=== PATIENT | male | born 1960 | race African-American/Black ===

== ENCOUNTER 2018-09-05 19:23 | Emergency (ER) | payer OTHER ==
[2018-09-05 20:48] LABS: Absolute Lymphocytes (CBC) 2.5 K/uL (0.7-4.9); Absolute Monocytes 0.6 K/uL (0.1-1.3); Absolute Neutrophil 3.6 K/uL (1.8-8.0); Basophils % 1.2 % (0-1.3); Eosinophils % 1.4 % (0-4.4); Hematocrit 44.7 % (39.6-49.0); Lymphocytes % 36.9 % (15.3-44.8); MPV 8.3 fL (7.6-11.3); Monocytes % 8.5 % (3.3-12.3); RBC Red Blood Cell Count 5.19 M/uL (4.33-5.43)
[2018-09-05 20:51] LABS: Protime INR 0.91
[2018-09-05 21:09] LABS: ALT/SGPT 24 U/L (12-78); AST/SGOT 11 U/L (15-37); Albumin 3.7 g/dL (3.4-5.0); Alkaline Phosphatase 64 U/L (45-117); BUN Blood Urea Nitrogen 19 mg/dL (7-18); Bicarbonate 26 mmol/L (21-32); Bilirubin Direct < 0.1 mg/dL (0-0.2); Bilirubin Total 0.2 mg/dL (0.2-1.0); Glucose Level 97 mg/dL (74-106); NT PRO-BNP 19 pg/mL (<125); Potassium 3.7 mmol/L (3.5-5.1); Protein, Total 7.3 g/dL (6.4-8.2); Sodium Level 140 mmol/L (136-145); Troponin (Emerg Dept Use Only) < 0.02 ng/mL (0.0-0.045)
--- NOTE | 2018-09-05 21:09 | RAD REPORT ---
EXAM DESCRIPTION: Thien Single View09/05/2018 8:45 pm CLINICAL HISTORY: Chest pain COMPARISON: 2009 FINDINGS: The lungs appear clear of acute infiltrate. The heart is probably upper limits normal siz e IMPRESSION: No acute abnormalities displayed
--- NOTE | 2018-09-05 23:15 | EDPHYS ---
Physician Documentation [facility] Name: Hi Tripathi Age: 58 yrs Sex: Male : 1960 Arrival Date: 09/05/2018 Time: 19:28 Bed 26 Private MD: Nae Carrasquillo H ED Physician Kevin Payne HPI: 09/05 23:00 This 58 yrs old Black Male presents to ER via Ambulatory with complaints of Chest Pain pm1 - left side. 23:00 Onset: The symptoms/episode began/occurred this morning, at 11:00. pm1 23:00 The patient or guardian reports chest pain that is located primarily in the anterior pm1 aspect of left upper chest. The pain does not radiate. Associated signs and symptoms: Pertinent negatives: abdominal pain, cough, dizziness, headache, nausea, shortness of breath, vomiting. The chest pain is described as sharp. Duration: The patient or guardian reports multiple episodes, approximately 2 episodes since symptom onset, the episodes last approximately 5 second(s), Patient with two episodes of chest pain. 5 seconds apiece. One at 1100 and another at 1830. Modifying factors: The symptoms are alleviated by nothing. the symptoms are aggravated by nothing. Severity of pain: in the emergency department the pain has resolved is a 0 / 10. The patient has not experienced similar symptoms in the past. The patient has not recently seen a physician, the patient's primary care provider is Dr. Carrasquillo. Historical: - Allergies: 20:24 No Known Allergies; tl3 - Home Meds: 20:24 albuterol sulfate 90 mcg/actuation Inhl HFAA [Active]; Lisinopril Oral once daily tl3 [Active]; - PMHx: 20:24 Hypertension; tl3 - Immunization history:: Adult Immunizations up to date. - Social history:: Smoking status: unknown. - Ebola Screening: : No symptoms or risks identified at this time. ROS: 23:00 Constitutional: Negative for fever, chills, and weight loss, Eyes: Negative for injury, pm1 pain, redness, and discharge, ENT: Negative for injury, pain, and discharge, Neck: Negative for injury, pain, and swelling. 23:00 Respiratory: Negative for shortness of breath, cough, wheezing, and pleuritic chest pain, Abdomen/GI: Negative for abdominal pain, nausea, vomiting, diarrhea, and constipation, Back: Negative for injury and pain, : Negative for injury, bleeding, discharge, and swelling, MS/Extremity: Negative for injury and deformity, Skin: Negative for injury, rash, and discoloration, Neuro: Negative for headache, weakness, numbness, tingling, and seizure. 23:00 Cardiovascular: Positive for chest pain, Negative for edema, orthopnea, palpitations. Exam: 23:00 Constitutional: This is a well developed, well nourished patient who is awake, alert, pm1 and in no acute distress. Head/Face: Normocephalic, atraumatic. Eyes: Pupils equal round and reactive to light, extra-ocular motions intact. Lids and lashes normal. Conjunctiva and sclera are non-icteric and not injected. Cornea within normal limits. Periorbital areas with no swelling, redness, or edema. ENT: Nares patent. No nasal discharge, no septal abnormalities noted. Tympanic membranes are normal and external auditory canals are clear. Oropharynx with no redness, swelling, or masses, exudates, or evidence of obstruction, uvula midline. Mucous membranes moist. Neck: Trachea midline, no thyromegaly or masses palpated, and no cervical lymphadenopathy. Supple, full range of motion without nuchal rigidity, or vertebral point tenderness. No Meningismus. Chest/axilla: Normal chest wall appearance and motion. Nontender with no deformity. No lesions are appreciated. Cardiovascular: Regular rate and rhythm with a normal S1 and S2. No gallops, murmurs, or rubs. Normal PMI, no JVD. No pulse deficits. Respiratory: Lungs have equal breath sounds bilaterally, clear to auscultation and percussion. No rales, rhonchi or wheezes noted. No increased work of breathing, no retractions or nasal flaring. Abdomen/GI: Soft, non-tender, with normal bowel sounds. No distension or tympany. No guarding or rebound. No evidence of tenderness throughout. Back: No spinal tenderness. No costovertebral tenderness. Full range of motion. Skin: Warm, dry with normal turgor. Normal color with no rashes, no lesions, and no evidence of cellulitis. MS/ Extremity: Pulses equal, no cyanosis. Neurovascular intact. Full, normal range of motion. 23:00 Neuro: Orientation: is normal, Motor: is normal, moves all fours. Vital Signs: 20:24 BP 154 / 92; Pulse 65; Resp 18; Pulse Ox 100% on R/A; Weight 99.79 kg; Height 5 ft. 6 tl3 in. (167.64 cm); 21:01 BP 138 / 115; Pulse 69; Resp 18; Pulse Ox 99% on R/A; tl3 22:07 BP 120 / 82; Pulse 60; Resp 18; Pulse Ox 100% on R/A; Pain 0/10; mg2 22:41 BP 115 / 70; Pulse 70; Resp 18; Pulse Ox 100% on R/A; tl3 23:30 BP 120 / 78; Pulse 80; Resp 18; Pulse Ox 100% on R/A; Pain 0/10; mg2 20:24 Body Mass Index 35.51 (99.79 kg, 167.64 cm) tl3 MDM: 20:05 Patient medically screened. pm1 23:11 Data reviewed: vital signs. Data interpreted: Pulse oximetry: on room air is 100 %. pm1 Interpretation: normal. Counseling: I had a detailed discussion with the patient and/or guardian regarding: the historical points, exam findings, and any diagnostic results supporting the discharge/admit diagnosis, lab results, radiology results, the need for outpatient follow up, to return to the emergency department if symptoms worsen or persist or if there are any questions or concerns that arise at home. 23:11 NIDIA Risk Score: TOTAL SCORE = 0. pm1 09/05 20:06 Order name: Basic Metabolic Panel; Complete Time: 21:11 pm09/05 20:06 Order name: CBC with Diff; Complete Time: 21:11 pm09/05 20:06 Order name: LFT's; Complete Time: 21:11 pm1 09/05 20:06 Order name: Magnesium; Complete Time: 21:11 pm1 09/05 20:06 Order name: NT PRO-BNP; Complete Time: 21:11 pm1 09/05 20:06 Order name: PT-INR; Complete Time: 21:11 pm1 09/05 20:06 Order name: Troponin (emerg Dept Use Only); Complete Time: 21:11 pm1 09/05 20:06 Order name: XRAY Chest (1 view); Complete Time: 21:11 pm1 09/05 20:06 Order name: EKG; Complete Time: 20:07 pm1 09/05 20:06 Order name: Cardiac monitoring; Complete Time: 20:19 pm1 09/05 20:06 Order name: EKG - Nurse/Tech; Complete Time: 20:20 pm1 09/05 20:06 Order name: IV Saline Lock; Complete Time: 20:20 pm1 09/05 20:06 Order name: Labs collected and sent; Complete Time: 20:20 pm1 09/05 22:09 Order name: Troponin (emerg Dept Use Only); Complete Time: 23:11 mg2 09/05 20:06 Order name: O2 Per Protocol; Complete Time: 20:20 pm1 09/05 20:06 Order name: O2 Sat Monitoring; Complete Time: 20:21 pm1 Administered Medications: No medications were administered Disposition: 09/06 07:58 Co-signature as Attending Physician, Kevin Payne MD I agree with the assessment and gracia plan of care. Disposition: 09/05/18 23:14 Discharged to Home. Impression: Chest pain, unspecified. - Condition is Stable. - Discharge Instructions: Nonspecific Chest Pain. - Medication Reconciliation Form, Thank You Letter, Antibiotic Education, Prescription Opioid Use form. - Follow up: Emergency Department; When: As needed; Reason: Worsening of condition. Follow up: Private Physician; When: 2 - 3 days; Reason: Recheck today's complaints, Continuance of care, Re-evaluation by your physician. - Problem is new. - Symptoms have improved. Signatures: Dispatcher [employer] EDSC Kevin Payne MD MD cha Marinas, Patrick, BOBBIN MARKER BOBBIN MARKER pm1 Bernice Gordillo, BIBI RN tl3 Jeison Ayala, BIBI RN mg2 Corrections: (The following items were deleted from the chart) 09/05 23:30 23:14 09/05/2018 23:14 Discharged to Home. Impression: Chest pain, unspecified. mg2 Condition is Stable. Forms are Medication Reconciliation Form, Thank You Letter, Antibiotic Education, Prescription Opioid Use. Follow up: Emergency Department; When: As needed; Reason: Worsening of condition. Follow up: Private Physician; When: 2 - 3 days; Reason: Recheck today's complaints, Continuance of care, Re-evaluation by your physician. Problem is new. Symptoms have improved. pm1
--- NOTE | 2018-09-05 23:15 | ER ---
Nurse's Notes [facility] Name: Hi Tripathi Age: 58 yrs Sex: Male : 1960 Arrival Date: 09/05/2018 Time: 19:28 Bed 26 Private MD: Nae Carrasquillo H Diagnosis: Chest pain, unspecified Presentation: 09/05 20:21 Presenting complaint: Patient states: two episodes of chest pain to the left side of tl3 chest lasting about 10 seconds each time, one episode of SOB while walking to his truck right after second episode of chest pain. Transition of care: patient was not received from another setting of care. Onset of symptoms was September 05, 2018. Risk Assessment: Do you want to hurt yourself or someone else? Patient reports no desire to harm self or others. Initial Sepsis Screen: Does the patient meet any 2 criteria? No. Patient's initial sepsis screen is negative. Does the patient have a suspected source of infection? No. Patient's initial sepsis screen is negative. Care prior to arrival: None. 20:21 Method Of Arrival: Ambulatory tl3 20:21 Acuity: DOROTHY 3 tl3 Triage Assessment: 20:24 General: Appears in no apparent distress. comfortable, slender, well groomed, well tl3 developed, well nourished, Behavior is calm, cooperative, appropriate for age. Pain: Complains of pain in chest Pain at worst was 10 out of 10 on a pain scale. EENT: No signs and/or symptoms were reported regarding the EENT system. Neuro: Level of Consciousness is awake, alert, obeys commands, Oriented to person, place, time, situation, Appropriate for age. Cardiovascular: Patient's skin is warm and dry. Rhythm is sinus rhythm. Respiratory: Airway is patent Respiratory effort is even, unlabored, Respiratory pattern is regular, symmetrical. GI: No signs and/or symptoms were reported involving the gastrointestinal system. : No signs and/or symptoms were reported regarding the genitourinary system. Derm: No signs and/or symptoms reported regarding the dermatologic system. Musculoskeletal: No signs and/or symptoms reported regarding the musculoskeletal system. Historical: - Allergies: 20:24 No Known Allergies; tl3 - Home Meds: 20:24 albuterol sulfate 90 mcg/actuation Inhl HFAA [Active]; Lisinopril Oral once daily tl3 [Active]; - PMHx: 20:24 Hypertension; tl3 - Immunization history:: Adult Immunizations up to date. - Social history:: Smoking status: unknown. - Ebola Screening: : No symptoms or risks identified at this time. Screenin:31 Abuse screen: Denies threats or abuse. Nutritional screening: No deficits noted. tl3 Tuberculosis screening: No symptoms or risk factors identified. Fall Risk None identified. Assessment: 20:31 Reassessment: No changes from previously documented assessment. Pain: Complains of pain tl3 in chest Pain does not radiate. Pain began. 21:01 Reassessment: No changes from previously documented assessment. Patient and/or family tl3 updated on plan of care and expected duration. Pain level reassessed. Patient is alert, oriented x 3, equal unlabored respirations, skin warm/dry/pink. family at the bedside. 22:41 Reassessment: Patient appears in no apparent distress at this time. No changes from tl3 previously documented assessment. Patient and/or family updated on plan of care and expected duration. Pain level reassessed. Patient is alert, oriented x 3, equal unlabored respirations, skin warm/dry/pink. awaiting lab results of repeat troponin. Vital Signs: 20:24 BP 154 / 92; Pulse 65; Resp 18; Pulse Ox 100% on R/A; Weight 99.79 kg; Height 5 ft. 6 tl3 in. (167.64 cm); 21:01 BP 138 / 115; Pulse 69; Resp 18; Pulse Ox 99% on R/A; tl3 22:07 BP 120 / 82; Pulse 60; Resp 18; Pulse Ox 100% on R/A; Pain 0/10; mg2 22:41 BP 115 / 70; Pulse 70; Resp 18; Pulse Ox 100% on R/A; tl3 23:30 BP 120 / 78; Pulse 80; Resp 18; Pulse Ox 100% on R/A; Pain 0/10; mg2 20:24 Body Mass Index 35.51 (99.79 kg, 167.64 cm) tl3 ED Course: 19:28 Patient arrived in ED. am2 19:28 Pasquale Gray MD is Private Physician. am2 19:29 Nae Carrasquillo DO is Private Physician. am2 19:42 Gardose, Jeison, RN is Primary Nurse. mg2 20:05 Thom Milligan NP is PHCP. pm1 20:05 Kevin Payne MD is Attending Physician. pm1 20:22 Triage completed. tl3 20:31 Patient has correct armband on for positive identification. front desk monitor on. Pulse tl3 ox on. NIBP on. Warm blanket given. 20:31 No provider procedures requiring assistance completed. Initial lab(s) drawn, by ne, tl3 sent to lab. Inserted saline lock: 20 gauge in right forearm, using aseptic technique. Blood collected. Patient maintains SpO2 saturation greater than 95% on room air. 20:47 XRAY Chest (1 view) In Process Unspecified. EDMS 22:13 Arm band placed on. mg2 23:27 IV discontinued, intact, bleeding controlled, No redness/swelling at site. Pressure mg2 dressing applied. Administered Medications: No medications were administered Outcome: 23:14 Discharge ordered by . pm1 23:29 Discharged to home ambulatory, with family. mg2 23:29 Condition: stable 23:29 Discharge instructions given to patient, family, Instructed on discharge instructions, follow up and referral plans. Demonstrated understanding of instructions, follow-up care. 23:30 Patient left the ED. mg2 Signatures: Dispatcher [employer] EDMS Thom Milligan, ROSEANN CIGAR ROLLER pm1 Beatriz San am2 Bernice Gordillo, BIBI RN tl3 Jeison Ayala, RN RN mg2
--- NOTE | 2018-09-06 08:09 | EKG ---
Test Date: 2018-09-05 Test Time: 20:14:06 Facilities Maintenance Engineer: TL MEASUREMENT RESULTS: Intervals: Rate: 65 VT: 180 QRSD: 94 QT: 390 QTc: 405 Alvarado: P: 40 VT: 180 QRS: -28 T: -3 INTERPRETIVE STATEMENTS: Normal sinus rhythm Normal ECG Compared to ECG 11/21/2014 13:23:44 No significant changes Electronically Signed On 09-06-18 08:08:27 MASTER FIRE CONTROL TECHNICIAN by Agustin Tillman
== END 2018-09-05 23:30 | disposition home or self-care (01) ==
LOC: ER 19:23
DX: R07.9 Chest pain, unspecified (principal); I10 Essential (primary) hypertension
CPT/HCPCS: 36415; 71045; 80048; 80076; 83735; 83880; 84484; 85025; 85610; 93005; 99285

== ENCOUNTER → 2023-09-15 | Emergency (ER) | payer OTHER ==
[~2023-09-15] MED LIST: NA CHLORIDE 0.9% 1,000 ML ONE; ONDANSETRON 4 MG/2 ML VIAL ONE
--- OUTSIDE RECORDS SUMMARY | 2023-09-15 20:31 | XMS REPORT | Continuity of Care Document ---
Author Name Unknown Address [address] [place] [address] Alec. [address] [place] [address] [facility] thconnect Address [address] [facility]. [address] [place] [address] Care Team Providers Care Transformation Analyst Name Role Phone PARVEZ BELCHER Attending Clinician RODERICK Matute Attending Clinician Unavailable Doctor Unassigned, [place] Attending Clinician U nicholas Belcher MD, Parvez Hu Attending Clinician Roderick Puente MD Attending Clinician Payers Payer Name Policy Type Policy Number Effective Date Expirati on Date Source L [employer] CLAIMS [id number] 2020 00:00:00 Problems Condition Name Condition Details Condition Category Status Onset Date Resolution Date Last Treatment Date Treating Clinician Comments Source No known active problems No known active problems Disease [facility] Allergies, Adverse Reactions, Alerts Allergy Name Allergy Type Status Severity Reaction(s) Onset Date Inactive Date Treating Clinician Comments Source NO KNOWN ALLERGIE S Drug Class Active [facility] Social History Social Habit Start Date Stop Date Quantity Comments Source Exposure to SARS-CoV-2 (event) Not sure [facility] Tobacco use and exposure 2021-01-05 00:00:00 2021-01-05 00:00:00 Never used [facility] Sex Assigned At 1960 00:00:00 1960 00:00:00 [facility] Smoking Status Start Date Stop Date Source Never smoker [facility] Unknown if ever smoked [facility] Medications Ordered Medication Name Filled Medication Name Start Date Stop Date Current Medication? Ordering Clinician Indication Dosage Frequency Signature (SIG) Comments Components Source atorvastati n 20 mg tablet 2020-0 10-20 00:00: 00 Yes 20mg Take 20 mg by mouth daily. [facility] lisinopriL 20 mg tablet 0 10-20 00:00: 00 Yes 20mg Take 20 mg by mouth daily. [facility] tamsulosin 0.4 mg 24 hr capsule 0 10-20 00:00: 00 Yes .4mg Take 0.4 mg by mouth daily. [facility] atorvastati n 20 mg tablet 2020-0 10-20 00:00: 00 Yes 20mg Take 20 mg by mouth daily. [facility] lisinopriL 20 mg tablet 0 10-20 00:00: 00 Yes 20mg Take 20 mg by mouth daily. [facility] tamsulosin 0.4 mg 24 hr capsule 10-20 00:00: 00 Yes .4mg Take 0.4 mg by mouth daily. [facility] atorvastati n 20 mg tablet 0 10-20 00:00: 00 Yes 20mg Take 20 mg by mouth daily. [facility] lisinopriL 20 mg tablet 0 10-20 00:00: 00 Yes 20mg Take 20 mg by mouth daily. [facility] tamsulosin 0.4 mg 24 hr capsule 0 10-20 00:00: 00 Yes .4mg Take 0.4 mg by mouth daily. [facility] atorvastati n 20 mg tablet 0 10-20 00:00: 00 Yes 20mg Take 20 mg by mouth daily. [facility] lisinopriL 20 mg tablet 2020-0 10-20 00:00: 00 Yes 20mg Take 20 mg by mouth daily. [facility] tamsulosin 0.4 mg 24 hr capsule 0 10-20 00:00: 00 Yes .4mg Take 0.4 mg by mouth daily. [facility] atorvastati n 20 mg tablet 2020-0 10-20 00:00: 00 Yes 20mg Take 20 mg by mouth daily. [facility] lisinopriL 20 mg tablet 10-20 00:00: 00 Yes 20mg Take 20 mg by mouth daily. [facility] tamsulosin 0.4 mg 24 hr capsule 10-20 00:00: 00 Yes .4mg Take 0.4 mg by mouth daily. [facility] atorvastati n 20 mg tablet 10-20 00:00: 00 Yes 20mg Take 20 mg by mouth daily. [facility] lisinopriL 20 mg tablet 10-20 00:00: 00 Yes 20mg Take 20 mg by mouth daily. [facility] tamsulosin 0.4 mg 24 hr capsule 10-20 00:00: 00 Yes .4mg Take 0.4 mg by mouth daily. [facility] Vital Signs Vital Name Observation Time Observation Value Comments S ourrosales Systolic blood pressure 2021-01-05 15:54:00 125 mm[Hg] [facility] Diastolic blood pressure 2021-01-05 15:54:00 81 mm[Hg] [facility] Heart rate 2021-01-05 15:54:00 81 /min [facility] Body height 2021-01-05 15:54:[address] [facility] Body weight 2021-01-05 15:54:[address] [facility] BMI 2021-01-05 15:54:00 37.40 kg/m2 [facility] Oxygen saturation in Arterial blood by Pulse oximetry 2021-01-05 15:54:00 97 /min [facility] Systolic blood pressure 2020-11-30 19:25:00 123 mm[Hg] [facility] Diastolic blood pressure 2020-11-30 19:25:00 74 mm[Hg] [facility] Heart rate 2020-11-30 19:25:00 80 /min [facility] Body temperature 2020-11-30 19:25:00 36.83 Jennifer [facility] Respiratory rate 2020-11-30 19:25:00 20 /min [facility] Body height 2020-11-30 19:25:[address] [facility] Body weight 2020-11-30 19:25:[address] [facility] BMI 2020-11-30 19:25:00 38.58 kg/m2 [facility] Oxygen saturation in Arterial blood by Pulse oximetry 2020-11-30 19:25:00 98 /min [facility] Procedures Procedure Date / Time Performed Performing Clinician Source MEDICATION CORRESPONDENCE 2021-01-12 05:01:00 Do ctor Unassigned, [place] [facility] AUTHORIZATION TO RELEASE PHI TO [facility] 2021-01-05 05:01:00 Doctor Unassigned, [place] [facility] POCT URINALYSIS AUTO 2020-11-30 19:27:00 Zak Puente [facility] ASSIGNMENT OF BENEFITS 2020-11-30 19:14:11 Docto r Unassigned, [place] [facility] Encounters Start Date/Time End Date/Time Encounter Type Admission Type Attending Clinicians Care Facility Care Department Encounter ID Source 2021-08-25 12:23:07 Outpatient [facility] [id number] [facility] 2021-02-26 13:30:00 2021-02-26 13:30:00 Outpatient PARVEZ MENDOSA [facility] [id number] [facility] 2021-02-08 15:30:00 2021-02-08 15:30:00 Outpatient RODERICK MCGEE [facility] [id number] [facility] 2021-01-26 08:00:00 2021-01-26 08:00:00 Outpatient PARVEZ MENDOSA [facility] [id number] [facility] 2021-01-21 08:00:00 2021-01-21 08:00:00 Outpatient PARVEZ MENDOSA [facility] [id number] [facility] 2021-01-12 00:00:00 2021-01-12 00:00:00 Orders Only Doctor Unassigned, [place] [facility] [id number] [facility] 2021-01-05 10:34:22 2021-01-05 11:20:31 Office Visit Parvez Belcher [facility] Building [id number] [facility] 2021-01-05 10:30:00 2021-01-05 10:30:00 Outpatient R SIMI MORGANRICHI [facility] [id number] [facility] 2021-01-05 00:00:00 2021-01-05 00:00:00 Orders Only Doctor Unassigned, [place] [facility] [id number] [facility] 2020-11-30 14:15:31 2020-11-30 14:53:37 Office Visit Garcíaobey [facility] [id number] [facility] 2020-11-30 14:30:00 2020-11-30 14:30:00 Outpatient R MAGGY [facility] [id number] [facility] 2020-11-30 00:00:00 2020-11-30 00:00:00 Orders Only Doctor Unassigned, [place] [facility] [id number] [facility] Results Test Description Test Time Test Comments Results Result Co mments Source [facility] [id number] 19:28:00 * Test Item Value Reference Range Interpretation Comme nts POCT U SP GRAV (test code = 3255) 1.025 mg/dl 1.005-1.025 POCT PH U (test code = 3254) 6.0 mg/dl 5-8 POCT U LEUK EST (test code = 3263) negative Negative - Negative POCT U NIT (test code = 3262) negative Negative - Negati ve POCT U PROT (test code = 3259) negative Negative - Negative POCT U GLU (test code = 3256) negative Negative - Negati ve POCT U KETONE (test code = 3258) negative Negative - Negative POCT U UROBILI (test code = 3260) 0.2 mg/dl 0.2-1 POCT U BILI (test code = 3261) negative Negative - Negative POCT U BLD (test code = 3257) trace Negative - Negati ve POCT U COLOR (test code = 3266) yellow POCT U APPEAR (test code = 3267) clear [facility]
--- NOTE | 2023-09-15 21:11 | RAD REPORT ---
EXAM DESCRIPTION: RAD - Chest Single View - 09/15/2023 9:05 pm CLINICAL HISTORY: syncope COMPARISON: Chest Single View dated 09/05/2018; CHEST SINGLE VIEW dated 05/05/2010; CHEST SINGLE VIEW d ated 12/06/2008; CHEST PA AND LAT 2 VIEW dated 06/30/2005 FINDINGS: Lines: None. Lungs: Mild opacities present lung bases. Pleural: No significant pleural effusions or pneumothorax. Cardiac: The heart size is within normal limits. Mediastinum: Within normal limits. Bones: No acute fractures. Other: None IMPRESSION: Likely mild atelectasis in the lung bases. No definite acute process .
[2023-09-15 21:45] LABS: Absolute Lymphocytes (CBC) 2.5 K/uL (0.7-4.9); Lymphocytes % 30.4 % (15.3-44.8); MCV 84.7 fL (80-100); MPV 7.3 fL (7.6-11.3); Platelets 214 thou/uL (152-406); RBC Red Blood Cell Count 4.61 M/uL (4.33-5.43)
[2023-09-15 22:03] LABS: Albumin 3.2 g/dL (3.4-5.0); Bilirubin Total 0.2 mg/dL (0.2-1.0); Potassium 4.1 mEq/L (3.5-5.1); Protein, Total 6.6 g/dL (6.4-8.2)
[2023-09-15 22:15] LABS: Troponin High Sensitivity 5.9 pg/mL (<58.9)
--- NOTE | 2023-09-15 22:30 | ER ---
Nurse's Notes [facility] Name: Hi Tripathi Age: 63 yrs Sex: Male : 1960 Arrival Date: 09/15/2023 Time: 20:27 Bed 19 Private MD: Diagnosis: Syncope Near Presentation: 09/15 20:31 Chief complaint: EMS states: pt stood up after eating, got lightheaded and had syncopal rv episode, fell slowly on his right side, no injury. upon EMS arrival, pt is aaox4, complaining of dizziness, ambulatory on scene, bgl of 123. Coronavirus screen: At this time, the client does not indicate any symptoms associated with coronavirus-19. Ebola Screen: No symptoms or risks identified at this time. Initial Sepsis Screen: Does the patient meet any 2 criteria? No. Patient's initial sepsis screen is negative. Does the patient have a suspected source of infection? No. Patient's initial sepsis screen is negative. Risk Assessment: Do you want to hurt yourself or someone else? Patient reports no desire to harm self or others. Onset of symptoms was September 15, 2023. 20:31 Method Of Arrival: EMS: [facility] rv 20:31 Acuity: DOROTHY 3 rv Triage Assessment: 20:33 General: Appears in no apparent distress. Behavior is calm, cooperative. Pain: Denies rv pain. Neuro: Level of Consciousness is awake, alert, obeys commands, Oriented to person, place, time, situation, Reports dizziness. Cardiovascular: Capillary refill < 3 seconds Patient's skin is warm and dry. Respiratory: Airway is patent Respiratory effort is even, unlabored. GI: No signs and/or symptoms were reported involving the gastrointestinal system. : No signs and/or symptoms were reported regarding the genitourinary system. Derm: Skin is intact. Historical: - Allergies: 20:33 No Known Allergies; rv - PMHx: 20:33 Hypertension; Diabetes mellitus; rv - PSHx: 20:33 None; rv - Immunization history:: Adult Immunizations up to date. - Social history:: Smoking status: Patient denies any tobacco usage or history of. Screenin:34 [facility] ED Fall Risk Assessment (Adult) History of falling in the last 3 months, rv including since admission No falls in past 3 months (0 pts) Score/Fall Risk Level 0 - 2 = Low Risk Oriented to surroundings, Maintained a safe environment, Educated pt \T\ family on fall prevention, incl call for assistance when getting out of bed, Assessed \T\ reinforced patient's understanding of fall precautions. Abuse screen: Denies threats or abuse. Denies injuries from another. Nutritional screening: No deficits noted. Tuberculosis screening: No symptoms or risk factors identified. Assessment: 20:50 General: Appears comfortable, well groomed, well developed, well nourished, Behavior is me1 calm, cooperative, appropriate for age, Reports pt stood up after eating, got lightheaded and had syncopal episode, fell slowly on his right side, no injury. A\T\Ox4 when EMS arrived. Pain: Denies pain. Neuro: Level of Consciousness is awake, alert, obeys commands, Oriented to person, place, time, situation, Appropriate for age. Cardiovascular: Capillary refill < 3 seconds Patient's skin is warm and dry. Respiratory: Airway is patent Trachea midline Respiratory effort is even, unlabored, Respiratory pattern is regular, symmetrical. GI: Pt is actively vomiting undigested food. 22:22 Reassessment: Patient and/or family updated on plan of care and expected duration. Pain rv level reassessed. Patient is alert, oriented x 3, equal unlabored respirations, skin warm/dry/pink. Patient states feeling better. Patient states symptoms have improved. 22:28 Reassessment: pt able to ambulate without any symptoms. rv Vital Signs: 20:31 BP 106 / 52; Pulse 62; Resp 17; Temp 98; Pulse Ox 98% ; Weight 102.06 kg; Height 5 ft. rv 8 in. ; 21:00 BP 110 / 76; Pulse 97; Resp 20; Pulse Ox 98% on R/A; me1 21:00 BP 112 / 64; Pulse 95; Resp 22; Pulse Ox 98% on R/A; me1 22:22 BP 109 / 65; Pulse 81; Resp 18; Temp 98; Pulse Ox 99% ; rv 20:31 Body Mass Index 34.21 (102.06 kg, 172.72 cm) rv Adri Coma Score: 22:22 Eye Response: spontaneous(4). Motor Response: obeys commands(6). Verbal Response: rv oriented(5). Total: 15. ED Course: 20:31 Patient arrived in ED. ec2 20:32 Saroj Bains MD is Attending Physician. ec2 20:33 Triage completed. rv 20:33 Arm band placed on right wrist. rv 20:34 Patient has correct armband on for positive identification. Client placed on continuous rv cardiac and pulse oximetry monitoring. NIBP monitoring applied. groundwater monitoring technician on. 20:34 No provider procedures requiring assistance completed. rv 20:36 Lianna Addison, RN is Primary Nurse. me1 20:50 Provided Education on: POC. Verbalized understanding. . me1 20:50 Inserted saline lock: 20 gauge in right antecubital area, using aseptic technique. me1 21:06 XRAY Chest (1 view) In Process Unspecified. EDMS 22:34 IV discontinued, intact, bleeding controlled, No redness/swelling at site. Pressure rv dressing applied. Administered Medications: 20:39 Drug: NS 0.9% IV 1000 ml IV at 1 bolus Per protocol; 1000 mL bolus Route: IV; Rate: 1 me1 bolus; Site: right antecubital; 21:30 Follow up: IV Status: Completed infusion; IV Intake: 1000ml me1 20:47 Drug: Ondansetron IVP 4 mg IVP once; over 2 minutes Route: IVP; Site: right antecubital;me1 20:53 Follow up: Response: No adverse reaction; Nausea is decreased me1 Medication: 20:34 VIS not applicable for this client. rv Intake: 21:30 IV: 1000ml; Total: 1000ml. me1 Outcome: 22:29 Discharge ordered by MD. ec2 22:34 Discharged to home ambulatory, rv 22:34 Condition: good 22:34 Discharge instructions given to patient, Instructed on discharge instructions, follow up and referral plans. Demonstrated understanding of instructions, follow-up care, 22:34 Patient left the ED. rv Signatures: Dispatcher [employer] EDMS Silvio Almanza RN RN rv Lianna Addison RN RN me1 Sarjo Bains MD MD ec2 Corrections: (The following items were deleted from the chart) 20:50 20:31 Chief complaint: EMS states: pt stood up after eating, got lightheaded and had me1 syncopal episode, fell slowly on his right side, no injury. upon EMS arrival, pt is aaox4, complaining of dizziness, ambulatory on scene, bgl of 123. rv
--- NOTE | 2023-09-15 22:30 | EDPHYS ---
Physician Documentation [facility] Name: Hi Tripathi Age: 63 yrs Sex: Male : 1960 Arrival Date: 09/15/2023 Time: 20:27 Bed 19 Private MD: ED Physician Saroj Bains HPI: 09/15 20:34 This 63 yrs old Black Male presents to ER via EMS with complaints of syncope. ec2 20:34 Patient arrives today for evaluation after feeling lightheaded. States that he was at ec2 dinner, had completed dinner and subsequently started feeling lightheaded like was in a pass out, tried to ambulate and subsequently lowered himself to the ground. No fall to the ground, no head strike, no chest pain, no difficulty breathing, states that he has returned to baseline after work. Patient reports otherwise normal state of health, no recent illnesses, no fevers or chills.. Historical: - Allergies: 20:33 No Known Allergies; rv - PMHx: 20:33 Hypertension; Diabetes mellitus; rv - PSHx: 20:33 None; rv - Immunization history:: Adult Immunizations up to date. - Social history:: Smoking status: Patient denies any tobacco usage or history of. ROS: 20:34 Constitutional: as per hpi ec2 Exam: 20:34 Constitutional: GEN: NAD Head: atraumatic Eyes: EOMI Ears: External ears are ec2 normal. CV: regular rate LUNGS: no respiratory distress ABD: non-distended SKIN: no evidence of rashes MSK: no evidence of trauma NEURO: moves all extremities equally, cranial nerves II through XII intact, strength intact all 4 extremities, normal [id number]. Vital Signs: 20:31 BP 106 / 52; Pulse 62; Resp 17; Temp 98; Pulse Ox 98% ; Weight 102.06 kg; Height 5 ft. rv 8 in. ; 21:00 BP 110 / 76; Pulse 97; Resp 20; Pulse Ox 98% on R/A; me1 21:00 BP 112 / 64; Pulse 95; Resp 22; Pulse Ox 98% on R/A; me1 22:22 BP 109 / 65; Pulse 81; Resp 18; Temp 98; Pulse Ox 99% ; rv 20:31 Body Mass Index 34.21 (102.06 kg, 172.72 cm) rv [place] Coma Score: 22:22 Eye Response: spontaneous(4). Motor Response: obeys commands(6). Verbal Response: rv oriented(5). Total: 15. MDM: 20:32 Patient medically screened. ec2 20:34 Data reviewed: vital signs. ED course: Patient arrives today for evaluation of ec2 lightheadedness. Examination remarkable for well-appearing neuro intact who is in no acute distress with reassuring examination. Will obtain lab work, EKG, chest x-ray. Currently evaluating for processes such as arrhythmia, anemia, dehydration.. 20:48 ED course: EKG independently reviewed and interpreted by me, shows normal sinus rhythm, ec2 rate of 84, no acute ST segment elevations, intervals are nonconcerning.. 21:14 ED course: Chest x-ray shows no acute intrathoracic process. . ec2 21:51 ED course: CBC reassuring. Pending troponin.. ec2 22:29 ED course: Troponin within normal ranges. On reassessment patient with no recurrence of ec2 symptoms, is well-appearing in no acute distress. Will discharge home, no evidence of acute endorgan function causing patient's symptoms, patient without any chest pain to suggest ACS, no suspicion of PE or dissection. . 09/15 20:32 Order name: CBC with Diff; Complete Time: 21:51 ec2 09/15 20:32 Order name: Troponin HS; Complete Time: 22:29 ec2 09/15 20:32 Order name: CMP; Complete Time: 22:29 ec2 09/15 20:32 Order name: XRAY Chest (1 view); Complete Time: 21:14 ec2 09/15 20:32 Order name: EKG; Complete Time: 20:33 ec2 09/15 20:32 Order name: Cardiac monitoring; Complete Time: 20:47 ec2 09/15 20:32 Order name: EKG - Nurse/Tech; Complete Time: 20:47 ec2 09/15 20:32 Order name: IV Saline Lock; Complete Time: 20:44 ec2 09/15 20:32 Order name: Labs collected and sent; Complete Time: 20:44 ec2 09/15 20:32 Order name: O2 Per Protocol; Complete Time: 20:44 ec2 09/15 20:32 Order name: O2 Sat Monitoring; Complete Time: 20:44 ec2 09/15 21:20 Order name: Labs - recollect needed; Complete Time: 21:30 kmf Administered Medications: 20:39 Drug: NS 0.9% IV 1000 ml IV at 1 bolus Per protocol; 1000 mL bolus Route: IV; Rate: 1 me1 bolus; Site: right antecubital; 21:30 Follow up: IV Status: Completed infusion; IV Intake: 1000ml me1 20:47 Drug: Ondansetron IVP 4 mg IVP once; over 2 minutes Route: IVP; Site: right antecubital;me1 20:53 Follow up: Response: No adverse reaction; Nausea is decreased me1 Disposition Summary: 09/15/23 22:29 Discharge Ordered Notes: Location: Home ec2 Condition: Stable ec2 Diagnosis - Syncope Near ec2 Followup: ec2 - With: Private Physician - When: - Reason: Recheck today's complaints Discharge Instructions: - Discharge Summary Sheet ec2 - Near-Syncope ec2 Forms: - Medication Reconciliation Form ec2 - Thank You Letter ec2 - Antibiotic Education ec2 - Prescription Opioid Use ec2 - Patient Portal Instructions ec2 - Leadership Thank You Letter ec2 Signatures: Dispatcher [employer] Silvio Vasquez RN RN Lianna Addison RN RN nc1 Saroj Bains MD MD ec2 Kala Hsu kmf Corrections: (The following items were deleted from the chart) 20:35 20:34 Constitutional: GEN: NAD Head: atraumatic Eyes: EOMI Ears: External ears are ec2 normal. CV: regular rate LUNGS: no respiratory distress ABD: non-distended SKIN: no evidence of rashes MSK: no evidence of trauma NEURO: moves all extremities equally ec2
[2023-09-15 23:04] VITALS: BP 109/65; TEMP 98; O2SAT 99
--- NOTE | 2023-09-18 11:02 | EKG ---
Test Date: 2023-09-15 Test Time: 20:42:12 Floor Scrubber: OLGA MEASUREMENT RESULTS: Intervals: Rate: 84 ME: 192 QRSD: 74 QT: 358 QTc: 423 [place]: P: 32 ME: 192 QRS: -38 T: 23 INTERPRETIVE STATEMENTS: Normal sinus rhythm Left axis deviation Abnormal ECG Compared to ECG 09/05/2018 20:14:06 Left-axis deviation now present Electronically Signed On 09-18-23 10:58:32 SHAKE SPLITTER by Mauricio Garces
== END ==
LOC: ER 20:27
DX: R55 Syncope and collapse (principal); E11.9 Type 2 diabetes mellitus without complications; I10 Essential (primary) hypertension
CPT/HCPCS: 96361; 85025; 36415; 84484; 80053; 71045; 96374; 99285; J2405; J7030; 93005